=== PATIENT | female | born 1955 | race Caucasian/White ===

== ENCOUNTER → 2024-02-19 06:36 | Day surgery (SDC) | payer MEDICARE, BC, SELFPAY | LOC: GI 06:36 | PROVIDERS: ATTENDING PHYSICIAN Internal Medicine Gastroenterology | DX: R19.5 Other fecal abnormalities (principal); K64.0 First degree hemorrhoids; K57.30 Diverticulosis of large intestine without perforation or abscess without bleeding; Z80.0 Family history of malignant neoplasm of digestive organs; D12.2 Benign neoplasm of ascending colon; D12.3 Benign neoplasm of transverse colon; K63.5 Polyp of colon; D12.5 Benign neoplasm of sigmoid colon; Z12.11 Encounter for screening for malignant neoplasm of colon; D12.8 Benign neoplasm of rectum | CPT/HCPCS: 45385; 45380; 88305 ==

== ENCOUNTER → 2024-08-08 06:41 | Outpatient (REF) | payer MEDICARE, BC, SELFPAY ==
[2024-08-08 07:21] LABS: % Basophils 0.9 % (0-2); % Eosinophils 4.1 % (0-6); % Immature Granulocytes 0.3 % (0-0.5); % Lymphocytes 39.1 % (20.5-51.1); % Monocytes 5.2 % (1.7-9.3); % Neutrophils 50.4 % (42.2-75.2); Absolute Basophils 0.1 10^3/uL (0-0.2); Absolute Eosinophils 0.3 10^3/uL (0-0.7); Absolute Lymphocytes 2.6 10^3/uL (1.2-3.4); Absolute Monocytes 0.3 10^3/uL (0.1-0.6); Absolute Neutrophils 3.3 10^3/uL (1.4-6.5); Hemoglobin 12.7 g/dL (12.0-16.0); Mean Corp Hgb Conc. 33.4 g/dL (33.0-37.0); Mean Corpuscular Hgb 27.5 pg (27.0-31.0); Mean Corpuscular Volume 82.3 fL (81.0-99.0); Mean Platelet Volume 10.2 fL (7.4-10.4); Nucleated Red Blood Cells % 0 %; Platelet Count 294 10^3/uL (130-400); Red Blood Cell Count 4.62 10^6/uL (4.20-5.40); Red Cell Dist. Width 14.1 % (11.5-14.5); White Blood Cell Count 6.6 10^3/uL (4.8-10.8)
[2024-08-08 07:41] LABS: ALT (SGPT) 15 U/L (0-35); AST (SGOT) 22 U/L (14-36); Albumin 4.5 g/dl (3.5-5.0); Alkaline Phosphatase 62 U/L (38-126); Blood Urea Nitrogen 20 mg/dl (7-17); Calcium 9.4 mg/dl (8.4-10.2); Carbon Dioxide 26 mmol/L (22-30); Chloride 101 mmol/L (98-107); Glucose 102 mg/dl (70-99); HDL Cholesterol 71 mg/dl; LDL Cholesterol, Calculated 131 mg/dl; Potassium 4.5 mmol/L (3.5-5.1); Sodium 139 mmol/L (135-145); Total Bilirubin 0.6 mg/dl (0.2-1.3); Total Cholesterol 219 mg/dl (50-199); Total Protein 7.4 g/dl (6.3-8.2); Triglyceride 87 mg/dl (10-149); Very Low Density Lipoprotein 17 mg/dl (0-30); eGFR > 60.00
[2024-08-08 08:10] LABS: TSH 1.02 uIU/ml (0.47-4.68)
[2024-08-08 09:38] LABS: Glycohemoglobin (HgbA1c) 5.9 % (4.0-5.6)
[2024-08-08 10:40] LABS: Vitamin D, 25-OH*** 48.7 ng/mL (30-80)
== END ==
LOC: REG 06:41
PROVIDERS: ATTENDING PHYSICIAN Family Medicine
DX: Z00.00 Encounter for general adult medical examination without abnormal findings (principal); E78.5 Hyperlipidemia, unspecified; E66.09 Other obesity due to excess calories; E55.9 Vitamin D deficiency, unspecified; R73.03 Prediabetes
CPT/HCPCS: 36415; 80053; 80061; 82306; 83036; 84443; 85025

== ENCOUNTER 2025-05-15 09:48 | Inpatient (IN) | payer MEDICARE, BC, SELFPAY ==
--- NOTE | 2025-04-27 13:41 | CM ---
Demographics: confirmed
Living situation: Lives with domestic partner
Support Person Post Operatively: Domestic Partner
History of
VN: no
SNF: no
Has patient purchased required equipment: yes
PCP: Maurizio
Pharmacy: [facility]
Post Operative Discharge Plan: Home with outpatient PT at [facility]
[2025-05-01 11:26] LABS: Hematocrit 37.2 % (37.0-47.0); Hemoglobin 12.2 g/dL (12.0-16.0); Mean Corp Hgb Conc. 32.8 g/dL (33.0-37.0); Mean Corpuscular Volume 83.6 fL (81.0-99.0); Platelet Count 332 10^3/uL (130-400); Red Cell Dist. Width 13.3 % (11.5-14.5)
[2025-05-01 11:31] VITALS: BMI 38.3
[2025-05-01 12:08] LABS: Glycohemoglobin (HgbA1c) 6.0 % (4.0-5.6)
[2025-05-01 12:22] LABS: ALT (SGPT) 20 U/L (0-35); AST (SGOT) 25 U/L (14-36); Albumin 4.5 g/dl (3.5-5.0); Alkaline Phosphatase 76 U/L (38-126); Blood Urea Nitrogen 16 mg/dl (7-17); Calcium 9.2 mg/dl (8.4-10.2); Carbon Dioxide 26 mmol/L (22-30); Chloride 105 mmol/L (98-107); Estimated Creatinine Clearance 94 ml/min; Glucose 88 mg/dl (70-99); Potassium 4.7 mmol/L (3.5-5.1); Sodium 140 mmol/L (135-145); Total Protein 7.4 g/dl (6.3-8.2); eGFR > 60.00
[2025-05-09 13:28] VITALS: BMI 38.3
[2025-05-15] VITALS (13 sets, daily range): BP systolic 113–171; BP diastolic 69–99; PULSE 58; O2SAT 98
[2025-05-15] MEDS: TYLENOL 650 MG PO ×3 (10:18→20:00)
[2025-05-15] MEDS: CELEBREX 200 MG PO (10:18)
[2025-05-15] MEDS: NORMOSOL-R/PLASMALYTE-A 1000 IV ×2 (10:25→16:40)
--- NOTE | 2025-05-15 12:31 | W.PN.UPDATE ---
Update Note
Progress Note Update
L hip OA s/p L HAILEY w/ Dr Do 05/15/25
- s/p L TKA, 2014, and R TKA, 2020, by Dr Do
DVT prophylaxis - ASA, b/l venous foot pumps
Obesity, BMI 38.3 - would benefit from Cefadroxil upon d/c
HLD
Diverticulosis
Situational anxiety
Vitamin D deficiency
Prediabetes, A1c 6.0
Remote history of tobacco abuse
[2025-05-15] MEDS: SUBLIMAZE 25 MCG IV (15:30)
[2025-05-15] MEDS: ULTRAM 50 MG PO ×2 (16:08→20:08)
--- NOTE | 2025-05-15 16:35 | PTCARENOTE ---
Patient admitted post left total hip arthroplasty.The patient is alert and oriented.She rates his pain at a 3 out of 10.Neurovascular assessment is within normal limits and ongoing.The dressing is intact without drainage.The patient is in her bed
with the call vaughn in place.
[2025-05-15] MEDS: VITAMIN D3 (cholecalciferol) 50 MCG PO (17:09)
[2025-05-15] MEDS: ASPIRIN 325 MG PO (17:10)
[2025-05-15] MEDS: BACTROBAN 2% OINTMENT 1 APPLIC NASAL (19:59)
[2025-05-15] MEDS: ANCEF 5 IV (19:59)
[2025-05-15] MEDS: SENOKOT PO (20:00)
[2025-05-15] MEDS: COLACE 100 MG PO (20:00)
[2025-05-15] MEDS: DECADRON 4 MG PO (20:00)
[2025-05-15] MEDS: FLORASTOR 250 MG PO (21:11)
[2025-05-15] MEDS: PEPCID 20 MG PO (21:11)
[2025-05-15] MEDS: NEURONTIN 300 MG PO (21:11)
[2025-05-16] MEDS: TYLENOL PO ×2 (00:54→04:41)
[2025-05-16 03:31] VITALS: BP 110/63
[2025-05-16] MEDS: ANCEF 5 IV (03:44)
[2025-05-16] MEDS: ROXICODONE 5 MG PO (05:48)
[2025-05-16 07:47] VITALS: BP 116/65
[2025-05-16] MEDS: ASPIRIN 325 MG PO (08:40)
[2025-05-16] MEDS: TYLENOL 650 MG PO (08:41)
[2025-05-16] MEDS: DECADRON 4 MG PO (08:41)
[2025-05-16] MEDS: COLACE 100 MG PO (08:41)
[2025-05-16] MEDS: CELEBREX 200 MG PO (08:42)
[2025-05-16] MEDS: SENOKOT 17.2 MG PO (08:42)
[2025-05-16] MEDS: VITAMIN D3 (cholecalciferol) 50 MCG PO (08:42)
[2025-05-16] MEDS: FLORASTOR 250 MG PO (08:43)
[2025-05-16] MEDS: BACTROBAN 2% OINTMENT 1 APPLIC NASAL (08:43)
[2025-05-16 08:52] VITALS: BP 133/74; PULSE 74
--- NOTE | 2025-05-16 09:22 | W.PN.ORTHO ---
Today's Communication / Plan
-
Await PT recs.
D/c this AM if remaining clinically stable.
Assessment
.
Distal Motor Intact: Yes
Dressing:
Clean, dry and intact.
Assessment:
L hip OA s/p L HAILEY w/ Dr Do 05/15/25
- s/p L TKA, 2014, and R TKA, 2020, by Dr Do
DVT prophylaxis - ASA, b/l venous foot pumps
Obesity, BMI 38.3 - would benefit from Cefadroxil upon d/c
HLD
Diverticulosis
Situational anxiety
Vitamin D deficiency
Prediabetes, A1c 6.0
Remote history of tobacco abuse
Plan
.
Surgery / Date: L HAILEY w/ Dr Do 05/15/25
DVT Prophylaxis: Aspirin
Activity:
Out of bed.
PT/OT
Discharge Plan: Home w/ Outpatient PT
Subjective
.
.:
Patient resting comfortably in her chair.
Reports L hip soreness; however, pain is bearable w/ current pain meds.
Denies any new significant complaints. Did well w/ OT this AM.
Eager for potential early d/c today.
Vital Signs and Labs
.
Vital Signs and Labs:
Lab Results
05/01/25 10:37
05/01/25 10:37
Temp Pulse Resp BP Pulse Ox
98.1 F 63 18 116/65 98
05/16/25 07:47 05/16/25 07:47 05/16/25 07:47 05/16/25 07:47 05/16/25 07:47
Non-invasive Hgb result: 12.2
Physical Exam
-
HEENT: No pallor, cyanosis, or jaundice. Throat clear.
NECK: Supple. No JVD.
RESPIRATORY: Lungs clear to auscultation.
CVS: S1, S2 normal. RRR.�
ABDOMEN: Soft, non-tender. No distension.
EXTREMITIES: Strength equal, no calf pain with palpation/dorsiflexion. Calves soft.
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 No focal deficits. 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
--- NOTE | 2025-05-16 09:26 | W.DS.TRANS ---
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
-
Discharge Instructions:
Sleep Apnea Risk Low
Discharge Diagnosis/Procedures L hip OA s/p L HAILEY w/ Dr Do 05/15/25
Diet Regular
Additional Diets Adequate hydration, minimize opioids, and wear
TEDs stockings to prevent low blood pressure/
dizziness.
Activity As tolerated,With Walker
Driving Restrictions Not until seen by your Dr
Bathing Restrictions OK to Shower
Other Services PT
Wound Care Dressing to be removed 1 week post-surgery.
Shayan to be removed at 2 week follow-up with
surgeon's office.
Instructions:
Stand-Alone Forms: Total Hip/Knee Replacement D/C
Changes to Home Medications: Yes
Discharge Medications:
DC Medications w/original date entered in [employer]
cholecalciferol (vitamin D3) 50 mcg (2,000 unit) tablet 2,000 units PO DAILY Supplement 04/25/21
cefadroxil 500 mg capsule 500 mg PO BID #14 caps 05/01/25
celecoxib 200 mg capsule (Celebrex) 200 mg PO DAILY #14 caps 05/01/25
dexamethasone 4 mg tablet 4 mg PO BID Anti-inflammatory #7 tabs 05/01/25
famotidine 20 mg tablet (Pepcid) 20 mg PO HS #30 tabs 05/01/25
gabapentin 300 mg capsule 300 mg PO HS neuropathic pain/sleep #10 caps 05/01/25
ondansetron HCl 4 mg tablet 4 mg PO Q6H PRN nausea and vomiting #30 tabs 05/01/25
tramadol 50 mg tablet 50 - 100 mg (1 - 2 x 50 mg) PO Q6H PRN moderate-severe pain #30 tabs 05/01/25
mupirocin 2 % topical ointment 1 applic intranasal BID #1 tube 05/02/25
Saccharomyces boulardii 250 mg capsule (Florastor) 250 mg PO BID #14 caps 05/16/25
acetaminophen 500 mg tablet (Acetaminophen Extra Strength) 1,000 mg (2 x 500 mg) PO Q6H #60 tabs 05/16/25
aspirin 325 mg tablet 325 mg PO DAILY #30 tabs 05/16/25
docusate sodium 100 mg capsule 100 mg PO BID #30 caps 05/16/25
magnesium hydroxide 400 mg/5 mL oral suspension (Milk of Magnesia) 30 ml PO HS PRN constipation #3,780 mL 05/16/25
sennosides 8.6 mg tablet (Concepcion-itz) 17.2 mg (2 x 8.6 mg) PO BID #30 tabs 05/16/25
Home Medication Changes
cefadroxil 500 mg capsule 500 mg PO BID #14 caps 05/01/25
celecoxib 200 mg capsule (Celebrex) 200 mg PO DAILY #14 caps 05/01/25
dexamethasone 4 mg tablet 4 mg PO BID Anti-inflammatory #7 tabs 05/01/25
famotidine 20 mg tablet (Pepcid) 20 mg PO HS #30 tabs 05/01/25
gabapentin 300 mg capsule 300 mg PO HS neuropathic pain/sleep #10 caps 05/01/25
ondansetron HCl 4 mg tablet 4 mg PO Q6H PRN nausea and vomiting #30 tabs 05/01/25
tramadol 50 mg tablet 50 - 100 mg (1 - 2 x 50 mg) PO Q6H PRN moderate-severe pain #30 tabs 05/01/25
Saccharomyces boulardii 250 mg capsule (Florastor) 250 mg PO BID #14 caps 05/16/25
acetaminophen 500 mg tablet (Acetaminophen Extra Strength) 1,000 mg (2 x 500 mg) PO Q6H #60 tabs 05/16/25
aspirin 325 mg tablet 325 mg PO DAILY #30 tabs 05/16/25
docusate sodium 100 mg capsule 100 mg PO BID #30 caps 05/16/25
magnesium hydroxide 400 mg/5 mL oral suspension (Milk of Magnesia) 30 ml PO HS PRN constipation #3,780 mL 05/16/25
sennosides 8.6 mg tablet (Concepcion-itz) 17.2 mg (2 x 8.6 mg) PO BID #30 tabs 05/16/25
Pending Results: No
[2025-05-16 10:01] VITALS: BP 129/87; BP 133/72; PULSE 67; PULSE 74; O2SAT 95
--- NOTE | 2025-05-16 10:27 | CM ---
CM reviewed medical records. [facility] IMM given.
PLAN: home with outpatient PT.
[2025-05-16 12:17] VITALS: BP 120/74
== END 2025-05-16 12:56 | disposition home or self-care (01) | DRG 470 ==
LOC: 2 SOUTH 09:48
PROVIDERS: ADMITTING PHYSICIAN Specialist; FAMILY PHYSICIAN Family Medicine
PROC: 0SRB03A Replacement of Left Hip Joint with Ceramic Synthetic Substitute, Uncemented, Open Approach (ICD-10-PCS; 2025-05-15)
DX: M16.12 Unilateral primary osteoarthritis, left hip (principal); Z68.38 Body mass index [BMI] 38.0-38.9, adult; E66.9 Obesity, unspecified; E55.9 Vitamin D deficiency, unspecified; F41.9 Anxiety disorder, unspecified; Z87.891 Personal history of nicotine dependence; E78.5 Hyperlipidemia, unspecified; Z96.653 Presence of artificial knee joint, bilateral; R73.03 Prediabetes
CPT/HCPCS: 36415; 73502; 80053; 83036; 85027; 87070; 93005; 97110; 97116; 97162; 97166; 97530; 97535; C1713; C1776

== ENCOUNTER 2025-06-09 06:54 | Outpatient (RCR) | payer MEDICARE, BC, SELFPAY | END 2025-06-09 23:59 | disposition home or self-care (01) | LOC: RPT 06:54 | PROVIDERS: ATTENDING PHYSICIAN Specialist; FAMILY PHYSICIAN Family Medicine | DX: Z47.1 Aftercare following joint replacement surgery (principal); Z73.6 Limitation of activities due to disability; R26.2 Difficulty in walking, not elsewhere classified; M62.81 Muscle weakness (generalized); R26.89 Other abnormalities of gait and mobility; M25.552 Pain in left hip; Z96.642 Presence of left artificial hip joint | CPT/HCPCS: 97010; 97110; 97112; 97140; 97162; 97530 ==

== ENCOUNTER 2025-07-07 07:40 | Outpatient (RCR) | payer MEDICARE, BC, SELFPAY | END 2025-07-10 13:37 | disposition home or self-care (01) | LOC: RPT 07:40 | PROVIDERS: ATTENDING PHYSICIAN Specialist; FAMILY PHYSICIAN Family Medicine | DX: Z47.1 Aftercare following joint replacement surgery (principal); Z73.6 Limitation of activities due to disability; R26.2 Difficulty in walking, not elsewhere classified; M62.81 Muscle weakness (generalized); R26.89 Other abnormalities of gait and mobility; M25.552 Pain in left hip; Z96.642 Presence of left artificial hip joint | CPT/HCPCS: 97110; 97112; 97140 ==